=== PATIENT | male | born 1985 | race Hispanic/Latino ===

== ENCOUNTER 2019-09-04 11:24 | Emergency (ER) | payer OTHER, SELFPAY ==
[2019-09-04] MEDS ORDERED: Lidocaine 2% w/ Epi 1:200K 10 ML VIAL ONE (11:43)
== END 2019-09-04 12:32 | disposition home or self-care (01) ==
LOC: BURERS 11:24
DX: S06.0X0A Concussion without loss of consciousness, initial encounter (principal); S01.01XA Laceration without foreign body of scalp, initial encounter; R42 Dizziness and giddiness; W22.8XXA Striking against or struck by other objects, initial encounter
CPT/HCPCS: 99283